=== PATIENT | female | born 1995 | race Hispanic/Latino ===

== ENCOUNTER → 2017-01-09 | Outpatient (CLI) | payer OTHER ==
[~2017-01-09] MED LIST: KETO10TA PO; NAPR500T3 PO; OMEP20CA12 PO
--- OUTSIDE RECORDS SUMMARY | 2017-01-09 13:31 | XMS REPORT | Continuity of Care Document ---
Author Author [facility] Organization [facility] Address Unknown Phone Unavailable Allergies Active Description Code Type Severity Reaction Onset Reported/Identified Relationship to Patient Clinical Status Yes No Known Drug Allergies [id number] Drug Allergy Unknown N/ A 10/24/2015 Medications Problems Date Dx Coded Attending Type Code Diagnosis Diagnosed By 10/24/2015 SUZI DUMONT DO Ot R10.31 RIGHT LOWER QUADRANT PAIN 10/24/2015 SUZI DUMONT DO Ot R11.2 NAUSEA WITH VOMITING, UNSPECIFIED 01/10/2016 ESTRELLA CASTELLANO DO Ot G43.909 MIGRAINE, UNSP, NOT INTRACTABLE, WITHOUT Procedures Results Encounters ACCT No. Visit Date/Time Discharge Status Pt. Type Provider Facility Loc./Unit Complaint [id number] 01/09/2016 22:21:00 2015 00:38:00 DIS Emergency ESTRELLA CASTELLANO DO [facility] ER [id number] 10/24/2015 03:16:00 2014 05:41:00 DIS Emergency SUZI DUMONT DO [facility] ER
--- NOTE | 2017-01-09 16:31 | Diagnostic Imaging Report ---
OB ultrasound. INDICATION: Uncertain dates. FINDINGS: There are no prior studies available for comparison. There is a gestational sac within the uterus containing a single live fetus. heart motion is noted and a rate of 143 bpm is recorded. The fetus is in variable presentation. The crown-rump length suggests the estimated gestational age is 11 weeks 1 day +/- 1 week. There are no obvious abnormalities identified. The amniotic fluid volume is within normal limits. At this time, it is not certain where the placenta will develop although I suspect it is posterior. There is no pelvic mass or free fluid collection identified. The ovaries are not well visualized. IMPRESSION: 1. There is a single live intrauterine of approximately 11 weeks 1 day gestation +/- 1 week. EDC is July 30, 2017. 2. There are no obvious abnormalities identified. If a more sensitive evaluation of the anatomy is desired, then a short-term (8-10 week) follow-up ultrasound exam should be obtained. Dictated by: Dictated on workstation # [id number]
== END ==
LOC: RAD 10:58
PROVIDERS: ATTEND Family Medicine
DX: Z34.01 Encounter for supervision of normal first pregnancy, first trimester (principal)
CPT/HCPCS: 76801

== ENCOUNTER → 2017-03-06 | Outpatient (CLI) | payer OTHER ==
--- NOTE | 2017-03-06 12:20 | Diagnostic Imaging Report ---
Indication: anatomical survey. Comparison: 01/09/2017. Discussion: Transabdominal sonographic evaluation of the gravid uterus was performed. Single live intrauterine at 18 weeks 6 days by sonographic measurements. Appropriate interval growth. EDC by today's ultrasound is 08/01/2017. presentation is cephalic. Normal amniotic fluid index. Grade 1 placenta is located posteriorly with no placenta previa. Normal heart rate measuring 147 beats per minute. Biparietal diameter measures 4.3 cm. Head circumference measures 15.7 cm. Abdominal circumference measures 13.2 cm. Femur length measures 2.9 cm. Estimated weight is 253 g. Good visualization of the kidneys, bladder, stomach, brain, four-chamber heart, three-vessel cord and insertion, spine, and extremities. Impression: 1. Single live intrauterine at 18 weeks 6 days by sonographic measurements. 2. Normal anatomical survey. Dictated by: Dictated on workstation # [id number]
== END ==
LOC: RAD 09:51
PROVIDERS: ATTEND Family Medicine
DX: Z36 Encounter for antenatal screening of mother (principal); Z3A.18 18 weeks gestation of pregnancy
CPT/HCPCS: 76805

== ENCOUNTER → 2017-05-31 | Outpatient (CLI) | payer OTHER ==
--- NOTE | 2017-05-31 13:32 | Diagnostic Imaging Report ---
INDICATION: Fundal height low for dates. EXAMINATION: OB sonography performed in routine fashion and compared to 03/06/2017. FINDINGS: Single live intrauterine fetus is seen measuring 30 weeks 2 days by composite measurements with sonographic EDC of 08/07/2017. This is about 8 days smaller than expected from original dates. While this may be due to variation of late , would recommend continued followup. The placenta is posterior and grade 2 with no evidence of previa. heart rate is 139 beats per minute. Biometrical measurements are as follows: Biparietal 7.54 cm, age 30 weeks 2 days. Head circumference 27.80 cm, age 30 weeks 3 days. Abdominal circumference 25.64 cm, age 29 weeks 6 days. Femur length 5.73 cm, age 30 weeks 1 days. Sonographic estimate age: 30 weeks 2 days. Sonographic estimated date of delivery: 08/07/17. Estimated Weight: 1488 gm (+/- 217 gm). LMP percentile: 7%. heart rate: 139 beats per minute. number: 1 of 1. IMPRESSION: Single live intrauterine fetus measuring 30 weeks 2 days in size, this is about 8 days more than expected from original dates. This may be within variation of late but would recommend continued followup. Dictated by: Dictated on workstation # [id number]
== END ==
LOC: RAD 11:43
PROVIDERS: ATTEND Family Medicine
DX: O26.843 Uterine size-date discrepancy, third trimester (principal); Z3A.30 30 weeks gestation of pregnancy
CPT/HCPCS: 76816

== ENCOUNTER → 2017-07-03 | Outpatient (CLI) | payer OTHER ==
[~2017-07-03] MED LIST changes: +FERR-74 PO; +IBUP-1773 PO; -NAPR500T3 PO; +NAPR500T4 PO
--- NOTE | 2017-07-03 15:53 | Diagnostic Imaging Report ---
INDICATION: None given. TECHNIQUE: Multiple real-time grayscale images were obtained over the gravid uterus. COMPARISON: This study was compared to the prior exams of 01/09/2017 03/06/2017, and 05/31/2017. FINDINGS: There is a single live fetus in cephalic presentation. heart motion was noted and a rate of 158 BPM was recorded. There were no abnormalities identified. The growth parameters average 33 weeks 5 days gestation +/-3 weeks. By the first exam of 01/09/2017, the estimated gestational age should be 36 weeks 1 day +/-1 week. The estimated weight is in the 10th percentile which does suggest borderline IUGR. The placenta is fundal and there is no previa. The amniotic fluid volume is within normal limits. IMPRESSION: 1. There is single live fetus of approximately 36 weeks 1 day gestation +/-1 week. The EDC remains July 30, 2017. 2. There were no abnormalities identified. 3. The growth parameters average less than expected by the first exam and the estimated weight is in the 10th percentile. This does suggest borderline IUGR. Clinical followup is recommended. 4. These results were called to Dr. Margaret Byrd. Biometrical measurements are as follows: Biparietal 8.24 cm, age 33 weeks 1 days. Head circumference 29.65 cm, age 32 weeks 6 days. Abdominal circumference 31.52 cm, age 35 weeks 4 days. Femur length 6.36 cm, age 33 weeks 0 days. Sonographic estimate age: 33 weeks 5 days. Sonographic estimated date of delivery: 08/16/2017. Estimated Weight: 2383 gm (+/- 348 gm). LMP percentile: 10%. heart rate: 158 beats per minute. number: 1 of 1. Dictated by: Dictated on workstation # [id number]
== END ==
LOC: RAD 13:52
PROVIDERS: ATTEND Family Medicine
DX: Z36 Encounter for antenatal screening of mother (principal); Z3A.36 36 weeks gestation of pregnancy
CPT/HCPCS: 76816

== ENCOUNTER → 2017-07-13 | Outpatient (CLI) | payer OTHER ==
[2017-07-13 14:25] VITALS: BP 109/75
--- NOTE | 2017-07-13 19:47 | Diagnostic Imaging Report ---
INDICATION: well-being. EXAMINATION: Biophysical profile. FINDINGS: The recent OB ultrasound exam of 07/03/17 noted a single live fetus approximately 36 weeks 1 day gestation +/-1 week. The prior study did suggest borderline IUGR. On this exam, the fetus is again identified. The fetus is cephalic in presentation. heart motion was noted and a rate of 150 bpm was recorded. The biophysical profile score is 8 out of 8 and within normal limits. The placenta is posterior and there is no previa. The amniotic fluid index is 9.3 cm (normal 8-22 cm). IMPRESSION: 1. There is a single live near-term fetus in cephalic presentation. 2. The biophysical profile score is 8 out of 8, within normal limits. Dictated by: Dictated on workstation # [id number]
== END ==
LOC: RAD 12:50
PROVIDERS: ATTEND Family Medicine
DX: Z36 Encounter for antenatal screening of mother (principal); Z3A.36 36 weeks gestation of pregnancy
CPT/HCPCS: 76819

== ENCOUNTER 2017-07-17 03:47 | Inpatient (IN) | payer OTHER ==
[~2017-07-17] VITALS: Ht 152.4 cm; Wt 53.1 kg
[2017-07-17] VITALS (10 sets, daily range): BP systolic 97–137; BP diastolic 47–74
[~2017-07-17 03:47] MED LIST changes: -FERR-74 PO; -IBUP-1773 PO; +NAPR500T3 PO; -NAPR500T4 PO
[2017-07-17] MEDS ORDERED: D5 LR IV SOLUTION 1,000 ML IV ONE (03:57)
[2017-07-17] MEDS ORDERED: D5 LR IV SOLUTION 1,000 ML IV SCH (04:04)
[2017-07-17] MEDS ORDERED: MINERAL OIL CONCENTRATE 99.9% 15 ML UDC TOP PRN (04:15)
[2017-07-17 04:58] LABS: BASOPHILS % (AUTO) 0 % (0-10); EOSINOPHILS % (AUTO) 0 % (0-10); LYMPHOCYTES # (AUTO) 1.6 X 10^3 (1.0-4.0); LYMPHOCYTES % (AUTO) 11 % (12-44); MEAN CORPUSCULAR HEMOGLOBIN 27 PG (25-34); MEAN CORPUSCULAR HGB CONC 33 G/DL (32-36); MEAN CORPUSCULAR VOLUME 81 FL (80-99); MEAN PLATELET VOLUME 11.7 FL (7.4-10.4); MONOCYTES # (AUTO) 0.7 X 10^3 (0.0-1.0); MONOCYTES % (AUTO) 5 % (0-12); NEUTROPHILS # (AUTO) 12.3 X 10^3 (1.8-7.8); NEUTROPHILS % (AUTO) 84 % (42-75); PLATELET COUNT 181 10^3/uL (130-400); RED BLOOD COUNT 3.57 10^6/uL (4.35-5.85); RED CELL DISTRIBUTION WIDTH 12.9 % (10.0-14.5); WHITE BLOOD COUNT 14.7 10^3/uL (4.3-11.0)
[2017-07-17] MEDS ORDERED: CATHETER FLUSH 10 ML SYR IV SCH ×2 (06:00→14:00)
[2017-07-17] MEDS ORDERED: ONDANSETRON 4 MG/2 ML (SDV) Z0FRAN IVP PRN (07:30)
[2017-07-17] MEDS ORDERED: LIDOCAINE/EPI 2% 1:200,00 (XYLOCAINE) 10 ML VIAL ONE (09:20)
--- NOTE | 2017-07-17 11:19 | History & Physical-OB ---
OB - Chief Complaint & HPI Date/Time Date of Admission: Date of Admission: Jul 17, 2017 at 04:04 Time Seen by Provider: 09:45 Chief Complaint/History OB-Reason for Admission/Chief: Rupture of Membranes (8 PM last night) Hx : 1 Hx Para: 0 Expected Date of Delivery: Jul 26, 2017 Gestational Age in Weeks: 38 Other reason for admission: Ruptured at 8 PM and started to have stronger more frequent ctxs at 2 AM and decided to come in. Allergies and Home Medications Allergies Coded Allergies: No Known Drug Allergies (Unverified , 10/24/15) Home Medications Ketorolac Tromethamine 10 Mg Tablet, 10 MG PO Q6H, #20 Ref 0 Prescribed by: ESTRELLA CASTELLANO on 01/10/16 0019 Omeprazole 20 Mg Capsule.dr, 20 MG PO DAILY, (Reported) OB - History Hx of Present Care: Yes Ultrasounds: Normal mid trimester US Abnormal Ultrasound Findings: Had f/u US in 3rd trimester for small fundal height, estimated weight was at 10th % Obstetrical Complications: None Medical Complications: None Information Induced Hypertension: No Maternal Gestational Diabetes: No Hemorrhage: No Obstetrical History Hx : 1 Hx Para: 0 Delivery History Hx Blood Disorders: No Adverse Rxn to Tranfusion: No Patient Past Medical History None Social History/Family History HIV/AIDS: No Recent Infectious Disease Expo: No Sexually Transmitted Disease: No Alcohol Use: Denies Use Recreational Drug Use: No Smoking Cessation: Never smoker Immunizations Hepatitis A: No Hepatitis B: Yes Tetanus Booster (TDap): Less than 5yrs (05/21/2017) Rubella: immune RPR/VDRL: Negative GBS Status: Negative HBsAG: Negative OB - Admission Exam Physical Exam Date Seen by Provider: Jul 17, 2017 Time Seen by Provider: 09:45 Vitals: Vital Signs 07/17/17 08:30 Temp 97.6 Pulse 89 Resp 18 B/P (MAP) 117/74 O2 Delivery Room Air HEENT: NCAT Heart: Rhythm Normal Lungs: Clear Abdomen: Non tender Extremities: Normal Reflexes: Normal Cervical Dilatation: 9cm Effacement: 100% Station: -1 Membranes: Ruptured Amniotic Fluid: Clear Heart Rate: 140's Accelerations: Accelerations Present Decelerations: No Decelerations Short Term Variability: Present Contractions on Admission: < 5 Minutes Apart Intensity: Firm Labs Laboratory Tests Test 8/29/17 04:45 Range/Units White Blood Count 14.7 H 4.3-11.0 10^3/uL Red Blood Count 3.57 L 4.35-5.85 10^6/uL Hemoglobin 9.5 L 11.5-16.0 G/DL Hematocrit 29 L 35-52 % Mean Corpuscular Volume 81 80-99 FL Mean Corpuscular Hemoglobin 27 25-34 PG Mean Corpuscular Hemoglobin Concent 33 32-36 G/DL Red Cell Distribution Width 12.9 10.0-14.5 % Platelet Count 181 130-400 10^3/uL Mean Platelet Volume 11.7 H 7.4-10.4 FL Neutrophils (%) (Auto) 84 H 42-75 % Lymphocytes (%) (Auto) 11 L 12-44 % Monocytes (%) (Auto) 5 0-12 % Eosinophils (%) (Auto) 0 0-10 % Basophils (%) (Auto) 0 0-10 % Neutrophils # (Auto) 12.3 H 1.8-7.8 X 10^3 Lymphocytes # (Auto) 1.6 1.0-4.0 X 10^3 Monocytes # (Auto) 0.7 0.0-1.0 X 10^3 Eosinophils # (Auto) 0.0 0.0-0.3 10^3/uL Basophils # (Auto) 0.0 0.0-0.1 10^3/uL OB - Assessment/Plan/Diagnosis Assessment Assessment: active labor, rupture of membranes Plan Plan: Expectant Management Other Plan 22 yo G1 @ 38.5 wga admitted overnight for rupture of membranes with onset of labor Plan - Expectant management - GBS neg Copy Copies To 1: MELA PERDOMO MD, HOLLY R MD Jul 17, 2017 11:19
[2017-07-17] MEDS ORDERED: OXYTOCIN/NORMAL SALINE 500 ML IV SCH (11:27)
[2017-07-17] MEDS ORDERED: MEASLES,MUMPS,RUBELLA 1 EA INJ SQ ONE (11:30)
[2017-07-17] MEDS ORDERED: BENZOCAINE/MENTHOL (DERMOPLAST) 56 ML CAN TP PRN (11:30)
[2017-07-17] MEDS ORDERED: TETANUS,DIPTH,PERTUSS P/F (BOOSTRIX) 0.5 ML VIAL IM ONE (11:30)
--- NOTE | 2017-07-17 11:38 | OB Labor & Delivery Record ---
Vag Delivery Note Vag Delivery Note Date of Delivery: 07/17/17 Preoperative Diagnosis: Korin Marin is a (22 /Para 1 / 0, Gestational Age (wks)38.5 wga admitted for Rupture of membranes with onset of labor. Postoperative Diagnosis: Same Surgeon: MELA PERDOMO Oracle Ebs Architect: None Anesthesia: None Delivery Type: Findings: Term Female , SGA Viable Female , apgars , weight Lacerations: skin lac at vaginal opening, no repair needed, adequate hemostasis Intact placenta with 3 vessel cord. No nuchal cord, body cord or shoulder dystocia Pitocin started at delivery of infant Estimated Blood Loss: 150 ml Complications: None Condition: Stable Description of Procedure: The patient is a 22 yo F who presented this AM with rupture of membranes and onset of labor. She was admitted and informed consent was obtained. Her labor course was unremarkable. She progressed to complete dilatation and began to push. She was then set up for delivery. The 's head was delivered atraumatically in the NEGRITA position with left hand up by face. The shoulders and remainder of the infant's body were then delivered without difficulty. Delayed cord clamping for 2 min and then cord was doubly clamped and cut and the was handed off to the pediatric staff. An intact placenta with 3-vessel cord delivered via Jeremi and there was found to be minimal bleeding.~ Vigorous fundal massage was performed and the fundus was found to be firm. IV oxytocin was given. Examination of the vagina and perineum revealed a vaginal laceration that did not require repair. Sponge, instrument and needle counts were correct. Mom and baby were both in stable condition in the labor suite. Vitals - Labs Vital Signs - I&O Vital Signs Date Time Temp Pulse Resp B/P (MAP) Pulse Ox O2 Delivery O2 Flow Rate FiO2 07/17/17 08:30 97.6 89 18 117/74 Room Air 07/17/17 08:15 97.4 89 18 114/73 Room Air 07/17/17 07:45 97.4 07/17/17 04:30 98.6 87 18 Room Air 07/17/17 04:00 107/58 Labs Laboratory Tests 07/17/17 04:45: White Blood Count 14.7H, Red Blood Count 3.57L, Hemoglobin 9.5L, Hematocrit 29L , Mean Corpuscular Volume 81, Mean Corpuscular Hemoglobin 27, Mean Corpuscular Hemoglobin Concent 33, Red Cell Distribution Width 12.9, Platelet Count 181, Mean Platelet Volume 11.7H, Neutrophils (%) (Auto) 84H, Lymphocytes (%) (Auto) 11L, Monocytes (%) (Auto) 5, Eosinophils (%) (Auto) 0, Basophils (%) (Auto) 0, Neutrophils # (Auto) 12.3H, Lymphocytes # (Auto) 1.6, Monocytes # (Auto) 0.7, Eosinophils # (Auto) 0.0, Basophils # (Auto) 0.0 MELA PERDOMO MD Jul 17, 2017 11:38
[2017-07-17] MEDS: WITCH HAZEL(TUCKS) 40 EA JAR TOP PRN (12:00)
[2017-07-17] MEDS: IBUPROFEN 600 MG (MOTRIN) TAB PO SCH ×2 (12:00→17:58)
[2017-07-18] VITALS: BP 96/61
[2017-07-18] MEDS: IBUPROFEN 600 MG (MOTRIN) TAB PO SCH ×4 (00:05→18:34)
[2017-07-18 03:39] VITALS: BP 91/55
[2017-07-18 06:38] LABS: BASOPHILS % (AUTO) 0 % (0-10); EOSINOPHILS % (AUTO) 0 % (0-10); LYMPHOCYTES % (AUTO) 12 % (12-44); MEAN CORPUSCULAR HEMOGLOBIN 26 PG (25-34); MEAN CORPUSCULAR HGB CONC 33 G/DL (32-36); MEAN CORPUSCULAR VOLUME 80 FL (80-99); MEAN PLATELET VOLUME 11.7 FL (7.4-10.4); MONOCYTES # (AUTO) 0.9 X 10^3 (0.0-1.0); MONOCYTES % (AUTO) 6 % (0-12); NEUTROPHILS # (AUTO) 14.2 X 10^3 (1.8-7.8); NEUTROPHILS % (AUTO) 83 % (42-75); PLATELET COUNT 165 10^3/uL (130-400); RED BLOOD COUNT 3.27 10^6/uL (4.35-5.85); WHITE BLOOD COUNT 17.2 10^3/uL (4.3-11.0)
[2017-07-18 12:00] VITALS: BP 102/64
--- NOTE | 2017-07-18 17:13 | Progress Note (SOAP) ---
Subjective Subjective/Events-last exam Afebrile, no acute events. She denies shortness of breath, dizziness or pain. Minimal lochia. going well. Review of Systems Date Seen by Provider: Jul 18, 2017 Time Seen by Provider: 11:55 Objective Exam Last Set of Vital Signs Vital Signs Date Time Temp Pulse Resp B/P (MAP) Pulse Ox O2 Delivery O2 Flow Rate FiO2 07/18/17 03:39 97.7 66 18 91/55 98 Room Air Capillary Refill : I&O Intake and Output 07/19/17 00:00 Intake Total 100 ml Balance 100 ml Intake Oral 100 ml # Voids 1 General: Alert, No Acute Distress Lungs: Clear to Auscultation, Normal Air Movement Heart: Regular Rate, No Murmurs Abdomen: Normal Bowel Sounds, Other (fundus firm below umbilicus) Neuro: Normal Speech Psych/Mental Status: Mental Status NL Results/Procedures Lab Laboratory Tests 07/18/17 06:10: White Blood Count 17.2H, Red Blood Count 3.27L, Hemoglobin 8.5L, Hematocrit 26L , Mean Corpuscular Volume 80, Mean Corpuscular Hemoglobin 26, Mean Corpuscular Hemoglobin Concent 33, Red Cell Distribution Width 13.0, Platelet Count 165, Mean Platelet Volume 11.7H, Neutrophils (%) (Auto) 83H, Lymphocytes (%) (Auto) 12, Monocytes (%) (Auto) 6, Eosinophils (%) (Auto) 0, Basophils (%) (Auto) 0, Neutrophils # (Auto) 14.2H, Lymphocytes # (Auto) 2.0, Monocytes # (Auto) 0.9, Eosinophils # (Auto) 0.0, Basophils # (Auto) 0.0 Assessment/Plan Assessment/Plan Admission Dx Term intrauterine SROM/Active labor Plan s/p spontaneous vaginal delivery- routine care asymptomatic anemia- iron sulfate daily Diagnosis/Problems: Clinical Quality Measures DVT/VTE Risk/Contraindication: Risk Factor Score Per Nursin RFS Level Per Nursing on Admit: 1=Low/No VTE PPX BONILLA AGUILERA MD Jul 18, 2017 5:13 pm
[2017-07-18 18:30] VITALS: BP 96/57
[2017-07-18] MEDS: WITCH HAZEL(TUCKS) 40 EA JAR TOP PRN (20:05)
[2017-07-18] MEDS ORDERED: FERR-74 PO (21:42)
[2017-07-18] MEDS ORDERED: IBUP-1773 PO (21:42)
[2017-07-19] MEDS: IBUPROFEN 600 MG (MOTRIN) TAB PO SCH ×3 (00:46→12:10)
[2017-07-19 00:47] VITALS: BP 102/71
[2017-07-19 05:47] VITALS: BP 101/63
[2017-07-19] MEDS ORDERED: FERROUS SULF 325 MG (IRON) TAB PO SCH (07:00)
[2017-07-19 07:40] VITALS: BP 111/72
--- NOTE | 2017-07-19 10:49 | Discharge Summary ---
Diagnosis/Chief Complaint Date of Admission Jul 17, 2017 at 4:04 am Date of Discharge Jul 19, 2017 Admission Diagnosis Admission Diagnosis Term intrauterine SROM/Active labor Discharge Diagnosis s/p spontaneous vaginal delivery asymptomatic anemia Chief Complaint/HPI Chief Complaint/HPI 22 yo female presented at full term gestation with SROM and active labor. Discharge Summary-Simple/Stand Procedures Spontaneous vaginal delivery Discharge Physical Examination Allergies: Coded Allergies: No Known Drug Allergies (Unverified , 10/24/15) Vitals & I&Os Vital Sign - Last 12Hours Date Time Temp Pulse Resp B/P (MAP) Pulse Ox O2 Delivery O2 Flow Rate FiO2 07/19/17 07:40 98.6 61 16 111/72 98 Room Air General Appearance: Alert, No Acute Distress Respiratory: Clear to Auscultation, Normal Air Movement Cardiovascular: Regular Rate, No Murmurs Hospital Course Unremarkable labor, delivery and course. Asymptomatic anemia, started on iron daily. Labs Laboratory Tests Test 07/18/17 06:10 Range/Units White Blood Count 17.2 H 4.3-11.0 10^3/uL Red Blood Count 3.27 L 4.35-5.85 10^6/uL Hemoglobin 8.5 L 11.5-16.0 G/DL Hematocrit 26 L 35-52 % Mean Corpuscular Volume 80 80-99 FL Mean Corpuscular Hemoglobin 26 25-34 PG Mean Corpuscular Hemoglobin Concent 33 32-36 G/DL Red Cell Distribution Width 13.0 10.0-14.5 % Platelet Count 165 130-400 10^3/uL Mean Platelet Volume 11.7 H 7.4-10.4 FL Neutrophils (%) (Auto) 83 H 42-75 % Lymphocytes (%) (Auto) 12 12-44 % Monocytes (%) (Auto) 6 0-12 % Eosinophils (%) (Auto) 0 0-10 % Basophils (%) (Auto) 0 0-10 % Neutrophils # (Auto) 14.2 H 1.8-7.8 X 10^3 Lymphocytes # (Auto) 2.0 1.0-4.0 X 10^3 Monocytes # (Auto) 0.9 0.0-1.0 X 10^3 Eosinophils # (Auto) 0.0 0.0-0.3 10^3/uL Basophils # (Auto) 0.0 0.0-0.1 10^3/uL Discharge Instructions to patient/family Please see electonic discharge instructions given to patient. Discharge Medications Reviewed and agree with Discharge Medication list on patient's Discharge Instruction sheet Clinical Quality Measures DVT/VTE Risk/Contraindication: Risk Factor Score Per Nursin RFS Level Per Nursing on Admit: 1=Low/No VTE PPX Copy Copies To 1: MELA PERDOMO MD, BETHANY N MD Jul 19, 2017 10:49 am
--- NOTE | 2017-07-19 10:49 | Discharge Instructions ---
Discharge [facility] Discharge Medications New, Converted or Re-Newed RX: Transmitted to Pharmacy New Medications: Ferrous Sulfate (Ferrous Sulfate) 325 Mg Tablet 325 MG PO DAILY@0700, #30 TAB 0 Refills Ibuprofen (Ibuprofen) 600 Mg Tablet 600 MG PO Q6H PRN for PAIN-MILD TO MODERATE, #60 TAB 0 Refills Discontinued Medications: Ketorolac Tromethamine (Ketorolac Tromethamine) 10 Mg Tablet 10 MG PO Q6H for Headache, #20 TAB 0 Refills Omeprazole (Omeprazole) 20 Mg Capsule.dr 20 MG PO DAILY, CAP Patient Instructions Goal/Follow Up Appt: Follow up with Dr. Byrd in 6 weeks for visit. Return to The Hospital For: Fever, increased vaginal bleeding, dizziness, chest pain, shortness of breath Activity & Diet Discharge Diet: No Restrictions Activity as Tolerated: Yes (avoid strenuous activity x 6 weeks) Copy Copies To 1: MELA BYRD MD, BETHANY N MD Jul 18, 2017 9:43 pm
[2017-07-19 11:30] VITALS: BP 98/61
== END 2017-07-19 16:40 | disposition home or self-care (01) | DRG 775 ==
LOC: WSo 03:47 → LDRP 03:47 → WSo 04:04 → LDRP 13:00
PROVIDERS: ADMIT Family Medicine; ATTEND Family Medicine
PROC: 10E0XZZ Delivery of Products of Conception, External Approach (ICD-10-PCS; principal; 2017-07-17)
DX: O99.03 Anemia complicating the puerperium (principal); D64.9 Anemia, unspecified; Z3A.38 38 weeks gestation of pregnancy; Z37.0 Single live birth
CPT/HCPCS: 36415; 85025; 86850; 86900; 86901

== ENCOUNTER 2019-12-07 10:48 | Emergency (ER) | payer SELFPAY ==
[~2019-12-07] VITALS: Ht 152 cm; Wt 50.0 kg
[~2019-12-07 10:48] MED LIST changes: +FERR325T18 PO; +IBUP-1773 PO; +NAPR-915 PO; -NAPR500T3 PO; +OMEP-280 PO; -OMEP20CA12 PO
[2019-12-07] MEDS ORDERED: OSLT75C PO (11:09)
[2019-12-07] MEDS ORDERED: ACETAMINOPHEN 325 MG TABLET PO STA (11:10)
[2019-12-07] MEDS ORDERED: ONDANSETRON 4 MG (ZOFRAN) ORAL DISSOLVE TAB SL STA (11:29)
[2019-12-07] MEDS ORDERED: ONDA4TAB11 PO (11:37)
--- NOTE | 2019-12-07 11:37 | ED General ---
General Chief Complaint: Cough/Cold/Flu Symptoms Stated Complaint: MIGRAINE Nursing Triage Note: SEEN AT THE CLINIC YESTERDAY AND WAS PRESCRIBED TAMIFLU. STATES SHE DOES NOT FEEL BETTER. COMPLAINS OF HEADACHE BUT HAS NOT TAKEN ANYTHING FOR THE HEADACHE. Nursing Sepsis Screen: Possible Severe Sepsis Risk History of Present Illness Date Seen by Provider: Dec 07, 2019 Time Seen by Provider: 11:15 Initial Comments 24 Year old female presents for migraine, nausea, and generalized discomfort. She was diagnosed with flu yesterday and started on Tamiflu. She is taking 2 doses of that. She has not taken anything for the migraine. She does not recurrently gets migraines. Her reports that she vomited approximately 20 minutes prior to arrival. She is denying any abdominal pain. She reports that she has been drinking adequately and urinating regularly. Timing/Duration: 12-24 Hours Severity: Mild Associated Systoms: No Chest Pain; Cough; No Diaphoresis, No Fever/Chills; Headaches, Loss of Appetite, Malaise, Nausea/Vomiting; No Rash, No Seizure, No Shortness of Air, No Syncope, No Weakness Allergies and Home Medications Allergies Coded Allergies: No Known Drug Allergies (Unverified , 10/24/15) Home Medications Ondansetron 4 Mg Tab.rapdis, 4 MG PO Q6H PRN for NAUSEA/VOMITING Prescribed by: JOHN MCDOWELL on 12/07/19 1137 Oseltamivir Phosphate 75 Mg Cap, 75 MG PO DAILY, (Reported) Patient Home Medication List Home Medication List Reviewed: Yes Review of Systems Review of Systems Constitutional: see HPI, malaise, weakness EENTM: see HPI, no symptoms reported Respiratory: see HPI, cough Cardiovascular: no symptoms reported, see HPI Gastrointestinal: see HPI, nausea, vomiting Genitourinary: no symptoms reported, see HPI Musculoskeletal: see HPI, muscle pain (general lysed secondary to flu) Skin: no symptoms reported Psychiatric/Neurological: No Symptoms Reported, See HPI Past [id number] Hx Past Med/Social Hx: Reviewed Nursing Past Med/Soc Hx Patient Social History Recent Foreign Travel: No Contact w/Someone Who Travel: No Recent Infectious Disease Expo: No Recent Hopitalizations: No Immunizations Up To Date Tetanus Booster (TDap): Less than 5yrs PED Vaccines UTD: No Seasonal Allergies Seasonal Allergies: No Past Medical History Surgeries: No Appendectomy Respiratory: No Cardiac: No Neurological: No Headaches /Migraines Last Menstrual Period: Dec 07, 2019 Reproductive Disorders: No Female Reproductive Disorders: Denies Sexually Transmitted Disease: No HIV/AIDS: No Genitourinary: No Gastrointestinal: No Gastroesophageal Reflux Musculoskeletal: No Endocrine: No HEENT: No Cancer: No Psychosocial: No Integumentary: No Blood Disorders: No Adverse Reaction/Blood Tranf: No Family Medical History Patient reports no known family medical history. Physical Exam Vital Signs Vital Signs - First Documented 12/07/19 11:04 Temp 37.1 Pulse 102 Resp 16 B/P (MAP) 106/72 (83) Pulse Ox 99 O2 Delivery Room Air Capillary Refill : Less Than 3 Seconds Height, Weight, BMI Height: 5'0.00" Weight: 117lbs. 2.0oz. [id number]; 21.00 BMI Method:Stated General Appearance: No Apparent Distress, WD/WN Eyes: Bilateral Eye Normal Inspection, Bilateral Eye PERRL, Bilateral Eye EOMI HEENT: PERRL/EOMI, TMs Normal, Normal ENT Inspection, Pharynx Normal Neck: Full Range of Motion, Normal Inspection, Non Tender, Supple Respiratory: Chest Non Tender, Lungs Clear, Normal Breath Sounds Cardiovascular: Regular Rate, Rhythm, No Edema, No Murmur, Normal Peripheral Pulses Gastrointestinal: Normal Bowel Sounds, Non Tender, Soft Extremity: Normal Capillary Refill, Normal Inspection, Normal Range of Motion Neurologic/Psychiatric: Alert, Oriented x3, No Motor/Sensory Deficits, Normal Mood/Affect Skin: Normal Color, Warm/Dry Lymphatic: No Adenopathy Progress/Results/Core Measures Suspected Sepsis Recent Fever Within 48 Hours: Yes Infection Criteria Present: Documented Infection New/Unexplained Altered Menta: No Sepsis Screen: Possible Severe Sepsis Risk SIRS Temperature: Pulse: 102 Respiratory Rate: 16 Blood Pressure 106 /72 Mean: 83 Results/Orders My Orders Orders - JOHN MCDOWELL Acetaminophen Tablet/Caplet (Tylenol T (12/07/19 11:10) Ondansetron Oral Dissolve Tab (Zofran (12/07/19 11:29) Vital Signs/I&O 12/07/19 11:04 Temp 37.1 Pulse 102 Resp 16 B/P (MAP) 106/72 (83) Pulse Ox 99 O2 Delivery Room Air Capillary Refill : Less Than 3 Seconds Blood Pressure Mean: 83 Progress Note : Time: 11:15 Progress Note Patient seen and evaluated, patient education and influenza and take several days before she will be feeling better. It is important she take Tylenol and ibuprofen for the headache and for the flu symptoms. Encouraged oral hydration. We'll give Zofran 4 mg by mouth for nausea. Taking ice chips, but also sharing with her toddler, stressed that this will increase the chances of her getting Flu. Departure Impression Primary Impression: Head ache Qualified Codes: R51 - Headache Additional Impressions: Nausea & vomiting Qualified Codes: R11.2 - Nausea with vomiting, unspecified Influenza Disposition: HOME, SELF-CARE Condition: Improved Departure-Patient Inst. Decision time for Depature: 11:45 Referrals: [facility] (PCP/Family) Primary Care Physician Patient Instructions: Flu, Adult (DC), Headache, Adult (DC) Add. Discharge Instructions: Alternate between Tylenol 650 mg and ibuprofen 600 mg every 4 hours for generalized pain, fever, or headache. Abide by a clear liquid diet while nauseous, then advance diet to bland diet as tolerated. Take Zofran 1 tablet every 6-8 hours as needed for nausea or vomiting. Increase water intake, drink 16 ounces every 2 hours while awake. Increase rest. Avoid social contacts and sharing any food or drinks with family members or others to avoid spreading influenza. Stay home for approximately 5 days or until fever free without Tylenol or ibuprofen for 24 hours. Follow-up at [facility] if symptoms are not improving or worsen. Return to the emergency department for new, urgent health care needs. All discharge instructions reviewed with patient and/or family. Voiced understanding. Scripts Ondansetron (Ondansetron Odt) 4 Mg Tab.rapdis 4 MG PO Q6H PRN for NAUSEA/VOMITING, #8 TAB 0 Refills Prov: JOHN MCDOWELL 12/07/19 Work/School Note: Work Release Form Date Seen in the Emergency Department: Dec 07, 2019 Return to Work: Dec 11, 2019 JOHN MCDOWELL Dec 07, 2019 11:37
[2019-12-07 11:52] VITALS: BP 106/72
== END 2019-12-07 11:51 | disposition home or self-care (01) ==
LOC: EDUNIT# 10:48 → ER 10:49
DX: J11.1 Influenza due to unidentified influenza virus with other respiratory manifestations (principal); G43.909 Migraine, unspecified, not intractable, without status migrainosus; K21.9 Gastro-esophageal reflux disease without esophagitis; Z90.49 Acquired absence of other specified parts of digestive tract
CPT/HCPCS: 99283